=== PATIENT | female | born 1945 | race Caucasian/White ===

== ENCOUNTER 2019-05-20 05:35 | Inpatient (IN) ==
[2019-05-06 14:05] LABS: Basophils % 0.5 % (0.0-0.8); Eosinophils # 0.3 10*3/uL (0.0-0.87); Eosinophils % 4.3 % (0.00-10.9); Hematocrit 41.7 VOL% (35.7-47.0); Hemoglobin 13.6 GM/DL (12.0-16.0); Immature Granulocytes % 0.5 %; Immature Granulocytes Absolute 0.03 #; Lymphocytes # 1.9 10*3/uL (1.4-4.0); Lymphocytes % 31.1 % (21.3-54.2); Mean Corpuscular HGB Conc 32.6 GM/DL (32-36); Mean Corpuscular Volume 88.5 FL (87-102); Mean Platelet Volume 10.3 FL (9.6-12.0); Monocytes % 7.7 % (1.7-12.7); Neutrophils % 55.9 % (38.7-73.9); Platelet Count 182 T/CUMM (130-400); Red Blood Count 4.71 MC/CUMM (3.8-5.5); Red Cell Distribution Width 12.7 % (9.3-17.3); White Blood Count 6.1 T/CUMM (4-12)
[2019-05-06 14:16] LABS: PT Patient Result 10.7 SECS (9.6-12.2); Partial Thromboplastin Time 27.2 SECS (20.8-36.0)
[2019-05-06 14:33] LABS: Albumin 3.7 G/DL (3.4-5.0); Bilirubin,Total 0.7 MG/DL (0.2-1.0); Calcium 9.5 MG/DL (8.5-10.1); Osmolality,Calculated 291.6 MOS/KG (273-304); Total Protein 7.1 G/DL (6.4-8.3)
[2019-05-08 10:58] LABS: Apearance,Urine CLEAR (Clear); Bacteria,Urine Occasional /HPF (Few); Bilirubin,Urine Negative (Negative); Blood, Urine Negative (Negative); Glucose,Urine (UA) Negative (Negative); Ketones,Urine Negative (Negative); Mucus,Urine Occasional /LPF (Occasional); Nitrite,Urine Positive (Negative); Protein,Urine Negative; RBC,Urine 2 /HPF (0-4); Squamous Epithelial Cell,Urine Few /HPF (0-10); Urine Color Yellow (Yellow); Urine Specific Gravity 1.029 (1.001-1.035); Urine Urobilinogen < 2.0 EU/DL (0.2-1.0); WBC,Urine 4 /HPF (0-6)
[~2019-05-20 05:35] MED LIST: GABAPENTIN 400 MG CAPSULE PO ONE
[2019-05-20] MEDS ORDERED: ACETAMINOPHEN 500 MG TABLET PO ONE (06:00)
[2019-05-20] MEDS ORDERED: FAMOTIDINE 20 MG TABLET PO ONE (06:00)
[2019-05-20] MEDS ORDERED: GABAPENTIN 400 MG CAPSULE ONE (06:12)
[2019-05-20] MEDS ORDERED: VANCOMYCIN 1,000 MG VIAL ONE (06:12)
[2019-05-20] MEDS ORDERED: FAMOTIDINE 20 MG TABLET ONE (06:13)
[2019-05-20] MEDS ORDERED: CLINDAMYCIN INJ 50 ML IV ONE (06:13)
[2019-05-20] MEDS ORDERED: ACETAMINOPHEN 500 MG TABLET ONE ×2 (06:13→06:18)
[2019-05-20] MEDS ORDERED: DEXAMETHASONE 4 MG/1 ML VIAL ONE ×2 (06:26→08:37)
[2019-05-20] MEDS ORDERED: EPINEPHrine 1 MG/ML VIAL ONE (06:26)
[2019-05-20] MEDS ORDERED: ROPIVACAINE 0.5% 30 ML VIAL ONE (06:26)
[2019-05-20] MEDS ORDERED: TRANEXAMIC ACID 1,000 MG/10 ML VIAL ONE (06:29)
[2019-05-20] MEDS ORDERED: LACTATED RINGERS 1,000 ML IV SCH (06:30)
[2019-05-20] MEDS ORDERED: CLINDAMYCIN INJ 900 MG in PREMIX 1 EACH IV ONE (06:30)
[2019-05-20] MEDS ORDERED: VANCOMYCIN INJ 1,000 MG in SODIUM CHLORIDE 0.9% 250 ML IV ONE (06:30)
[2019-05-20] MEDS ORDERED: diphenhydrAMINE CAP 25 MG CAPSULE PO PRN (07:26)
[2019-05-20] MEDS ORDERED: MAGNESIUM HYDROXIDE SUSP 30 ML UDCUP PO PRN (07:26)
[2019-05-20] MEDS ORDERED: ZALEPLON 5 MG CAPSULE PO PRN (07:26)
[2019-05-20] MEDS ORDERED: MORPHINE 4 MG/1 ML VIAL IV PRN ×2 (07:26)
[2019-05-20] MEDS ORDERED: ONDANSETRON 4 MG/2 ML VIAL IV PRN (07:26)
[2019-05-20] MEDS ORDERED: PROPOFOL 200 MG/20 ML VIAL IV ONE (08:36)
[2019-05-20] MEDS ORDERED: PHENYLEPHRINE 1 MG/10 ML SYRINGE IV ONE (08:37)
[2019-05-20] MEDS ORDERED: ONDANSETRON 4 MG/2 ML VIAL ONE (08:37)
[2019-05-20] MEDS ORDERED: BUPIVACAINE SPINAL 0.75% 2 ML AMP SPINAL ONE (08:37)
[2019-05-20] MEDS ORDERED: fentaNYL 100 MCG/2 ML VIAL ONE (08:37)
[2019-05-20] MEDS ORDERED: ePHEDrine 50 MG/ML AMP ONE (08:37)
[2019-05-20] MEDS ORDERED: MIDAZOLAM 2 MG/2 ML VIAL ONE (08:37)
[2019-05-20] MEDS: Biotin 1,000 MCG PO SCH (10:29)
[2019-05-20] MEDS: ASPIRIN EC 81 MG TABLET PO SCH (10:29)
[2019-05-20] MEDS: ROSUVASTATIN 10 MG TABLET PO SCH (10:30)
[2019-05-20] MEDS: DOCUSATE SODIUM 100 MG CAPSULE PO SCH ×2 (10:30→22:03)
[2019-05-20] MEDS: POTASSIUM CHLORIDE 10 MEQ TABLET PO SCH (10:30)
[2019-05-20] MEDS: COENZYME Q10 100 MG CAPSULE PO SCH (10:30)
[2019-05-20] MEDS: KETOROLAC 15 MG/1 ML VIAL IV SCH ×3 (10:38→23:45)
[2019-05-20] MEDS: CLINDAMYCIN INJ 900 MG in PREMIX 1 EACH IV SCH ×2 (14:53→23:46)
[2019-05-20] MEDS: LACTATED RINGERS 1,000 ML IV SCH (17:35)
[2019-05-20] MEDS: METOPROLOL TARTRATE 25 MG TABLET PO SCH (22:03)
[2019-05-20] MEDS: APIXABAN 2.5 MG TABLET PO SCH (22:04)
[2019-05-21] MEDS: LACTATED RINGERS 1,000 ML IV SCH (01:52)
[2019-05-21] MEDS: KETOROLAC 15 MG/1 ML VIAL IV SCH (04:51)
[2019-05-21 05:53] LABS: Basophils % 0.2 % (0.0-0.8); Eosinophils % 0.1 % (0.00-10.9); Hematocrit 36.5 VOL% (35.7-47.0); Immature Granulocytes % 0.4 %; Immature Granulocytes Absolute 0.05 #; Lymphocytes # 1.3 10*3/uL (1.4-4.0); Lymphocytes % 9.8 % (21.3-54.2); Mean Corpuscular HGB Conc 32.9 GM/DL (32-36); Mean Corpuscular Volume 88.4 FL (87-102); Mean Platelet Volume 11.1 FL (9.6-12.0); Monocytes % 8.1 % (1.7-12.7); Neutrophils % 81.4 % (38.7-73.9); Platelet Count 176 T/CUMM (130-400); Red Blood Count 4.13 MC/CUMM (3.8-5.5); Red Cell Distribution Width 12.9 % (9.3-17.3); White Blood Count 12.9 T/CUMM (4-12)
[2019-05-21 06:24] LABS: Calcium 8.7 MG/DL (8.5-10.1); Osmolality,Calculated 283.5 MOS/KG (273-304)
[2019-05-21] MEDS: ASPIRIN EC 81 MG TABLET PO SCH (09:44)
[2019-05-21] MEDS: POTASSIUM CHLORIDE 10 MEQ TABLET PO SCH (09:44)
[2019-05-21] MEDS: METOPROLOL TARTRATE 25 MG TABLET PO SCH ×2 (09:45→21:32)
[2019-05-21] MEDS: ROSUVASTATIN 10 MG TABLET PO SCH (09:45)
[2019-05-21] MEDS: APIXABAN 2.5 MG TABLET PO SCH ×2 (09:45→21:32)
[2019-05-21] MEDS: Biotin 1,000 MCG PO SCH (09:46)
[2019-05-21] MEDS: DOCUSATE SODIUM 100 MG CAPSULE PO SCH ×2 (09:49→21:32)
[2019-05-21] MEDS: CELECOXIB 200 MG CAPSULE PO SCH (13:58)
[2019-05-22] MEDS: METOPROLOL TARTRATE 25 MG TABLET PO SCH (08:40)
[2019-05-22] MEDS: DOCUSATE SODIUM 100 MG CAPSULE PO SCH (08:40)
[2019-05-22] MEDS: CELECOXIB 200 MG CAPSULE PO SCH (08:40)
[2019-05-22] MEDS: ASPIRIN EC 81 MG TABLET PO SCH (08:41)
[2019-05-22] MEDS: POTASSIUM CHLORIDE 10 MEQ TABLET PO SCH (08:41)
[2019-05-22] MEDS: APIXABAN 2.5 MG TABLET PO SCH (08:41)
[2019-05-22] MEDS: ROSUVASTATIN 10 MG TABLET PO SCH (08:41)
[2019-05-22] MEDS: COENZYME Q10 100 MG CAPSULE PO SCH (08:42)
[2019-05-22] MEDS: Biotin 1,000 MCG PO SCH (08:43)
[2019-05-22 13:25] VITALS: BP 121/40
== END 2019-05-22 14:00 | disposition home health service (06) | DRG 470 ==
LOC: N.OR 05:35 → N.SDSINP 05:35 → N.3E 09:29
PROVIDERS: ADMIT Orthopaedic Surgery; ATTEND Orthopaedic Surgery